=== PATIENT | male | born 1970 | race Caucasian/White ===

== ENCOUNTER 2023-06-09 17:35 | Emergency (ER) | payer SELFPAY ==
[~2023-06-09] VITALS: Ht 185.4 cm; Wt 82.8 kg
[2023-06-09 18:50] LABS: URINE BLOOD DIPSTICK Large (NEGATIVE); URINE GLUCOSE - DIPSTICK 100 mg/dL (NEGATIVE); URINE KETONE 40 mg/dL (NEGATIVE); URINE PH 6.5 (4.5-8.0); URINE PROTEIN - DIPSTICK >=300 mg/dL (NEG-TRACE)
[2023-06-09 18:51] LABS: URINE COLOR Red; URINE LEUK ESTERASE Large (NEGATIVE); URINE NITRITE - DIPSTICK Positive (Negative)
[2023-06-09 18:52] LABS: URINE RBC TNTC RBC/hpf (0-5)
[2023-06-09 19:59] LABS: BASO% 0.4 % (0-3); EOS% 1.6 % (0-8); HEMATOCRIT 46.6 % (39.0-50.0); HEMOGLOBIN 15.2 g/dl (14.0-18.0); IMMATURE GRANULOCYTES 0.1 % (0.0-5.0); LYMPH% 23.7 % (15-41); MEAN CORPUSCULAR HGB 29.3 pG CALC (26.0-32.0); MEAN CORPUSCULAR HGB CONC 32.6 g/dL CAL (32.0-36.0); MONO% 7.8 % (2-13); NEUT# 7.11 thou/uL (1.82-7.42); NEUT% 66.4 % (42-76); RED BLOOD COUNT 5.18 mill/uL (4.70-6.10); RED CELL DISTRI WIDTH 14.5 % (11.5-15.5)
[2023-06-09 20:11] LABS: ALBUMIN 4.4 g/dL (3.2-5.0); ALKALINE PHOSPHATASE 113 u/l (38-126); ANION GAP 15 (6-22 (CALC)); BILIRUBIN, TOTAL 0.5 mg/dL (0.2-1.3); BUN 15 mg/dL (9-20); BUN/CREATININE RATIO 18 (12-20 (CALC)); CARBON DIOXIDE 22 mmol/l (22-30); CHLORIDE 105 mmol/l (95-108); CREATININE 0.9 mg/dL (0.7-1.3); GFR FOR AFR.AMER. > 60 ML/MIN (>=60 (CALC)); GFR OTHER RACES > 60 ML/MIN (>=60 (CALC)); LIPASE 45 u/l (23-300); POTASSIUM 4.1 mmol/l (3.5-5.1); SGOT/AST 26 u/l (17-59); SODIUM 139 mmol/l (137-146)
[2023-06-09 20:12] LABS: PROTHROMBIN TIME 9.7 SECONDS (9.0-12.5)
[2023-06-09] MEDS ORDERED: OMNI-PAC300 MG PO (21:46)
[2023-06-09] MEDS ORDERED: ONDANSETRON HCL8 MG PO (21:46)
[2023-06-09] MEDS ORDERED: LEVAQUIN750 M1 PO (21:46)
[2023-06-09] MEDS ORDERED: LORTAB 1010 MG PO (21:46)
[2023-06-09 23:44] VITALS: BP 140/82
== END 2023-06-09 23:45 | disposition home or self-care (01) | DRG 699 ==
LOC: ED 17:35
PROVIDERS: Internal Medicine; Nurse Practitioner
DX: N32.9 Bladder disorder, unspecified (principal); N39.0 Urinary tract infection, site not specified; N20.0 Calculus of kidney; F17.210 Nicotine dependence, cigarettes, uncomplicated

== ENCOUNTER 2024-08-25 10:14 | Emergency (ER) | payer OTHER ==
[~2024-08-25] VITALS: Ht 185.4 cm; Wt 79.5 kg
[2024-08-25] VITALS (13 sets, daily range): BP systolic 119–160; BP diastolic 72–108
[~2024-08-25 10:14] MED LIST: LEVAQUIN750 M1 PO; LORTAB 1010 MG PO; OMNI-PAC300 MG PO; ONDANSETRON HCL8 MG PO
[2024-08-25] MEDS ORDERED: AZITHROMYCIN 250 MG/TAB PO ONE (10:35)
[2024-08-25] MEDS ORDERED: IPRATROPIUM-Albuterol 0.5MG-2.5MG/3 ML NEB ONE ×2 (10:35→10:40)
[2024-08-25] MEDS ORDERED: methylPREDNISolone SODIUM SUCC 125 MG/2 ML SDV IV ONE (10:35)
[2024-08-25] MEDS ORDERED: cefTRIAXone SODIUM 2 GM in SODIUM CHLORIDE 0.9% 100 ML IV ONE (10:35)
[2024-08-25 11:02] LABS: BASO% 0.8 % (0-3); EOS% 9.8 % (0-8); HEMATOCRIT 43.8 % (39.0-50.0); HEMOGLOBIN 13.8 g/dl (14.0-18.0); IMMATURE GRANULOCYTES 0.3 % (0.0-5.0); LYMPH% 27.7 % (15-41); MEAN CELL VOLUME 92.4 fL CALC (80.0-100.0); MEAN CORPUSCULAR HGB 29.1 pG CALC (26.0-32.0); MEAN CORPUSCULAR HGB CONC 31.5 g/dL CAL (32.0-36.0); MONO% 9.3 % (2-13); NEUT# 3.94 thou/uL (1.82-7.42); NEUT% 52.1 % (42-76); RED BLOOD COUNT 4.74 mill/uL (4.70-6.10); RED CELL DISTRI WIDTH 16.5 % (11.5-15.5)
[2024-08-25 11:17] LABS: ALBUMIN 4.5 g/dL (3.2-5.0); ALKALINE PHOSPHATASE 123 u/l (38-126); ANION GAP 12 (6-22 (CALC)); BILIRUBIN, TOTAL 0.8 mg/dL (0.2-1.3); BUN 6 mg/dL (9-20); BUN/CREATININE RATIO 7 (12-20 (CALC)); CARBON DIOXIDE 23 mmol/l (22-30); CHLORIDE 106 mmol/l (95-108); CREATININE 0.9 mg/dL (0.7-1.3); ESTIMATED GFR 102 ML/MIN (>=90 (CALC)); POTASSIUM 4.6 mmol/l (3.5-5.1); SGOT/AST 34 u/l (17-59); SODIUM 137 mmol/l (137-146); TOTAL PROTEIN 8.8 g/dL (6.3-8.2)
[2024-08-25] MEDS ORDERED: OXYCODONE HCL10 MG PO (11:33)
[2024-08-25] MEDS ORDERED: GABAPENTIN300 M2 PO (11:35)
[2024-08-25] MEDS ORDERED: ONDANSETRON HCL8 MG PO (11:36)
[2024-08-25] MEDS ORDERED: PROMETHAZINE12.5 M4 PO (11:37)
[2024-08-25] MEDS ORDERED: VENTOLIN HFA108 MCG IN (11:38)
[2024-08-25] MEDS ORDERED: IPRATROPIU0.5 MG/3 M IN (13:30)
[2024-08-25] MEDS ORDERED: TAM75CAP PO (13:30)
[2024-08-25] MEDS ORDERED: DOXYCYCLINE100 MG PO (13:30)
[2024-08-25] MEDS ORDERED: PREDNISONE50 MG PO (13:30)
== END 2024-08-25 13:49 | disposition home or self-care (01) ==
LOC: ED 10:14
PROVIDERS: Family Medicine
DX: J11.1 Influenza due to unidentified influenza virus with other respiratory manifestations (principal); J44.1 Chronic obstructive pulmonary disease with (acute) exacerbation; F17.200 Nicotine dependence, unspecified, uncomplicated; Z85.118 Personal history of other malignant neoplasm of bronchus and lung; Z85.51 Personal history of malignant neoplasm of bladder; Z20.822 Contact with and (suspected) exposure to COVID-19
CPT/HCPCS: J0696; Q9967

== ENCOUNTER 2024-09-12 07:30 | Inpatient (IN) | payer OTHER ==
[~2024-09-12] VITALS: Ht 185.4 cm; Wt 79.0 kg
[2024-09-12] VITALS (29 sets, daily range): BP systolic 121–161; BP diastolic 78–99
[~2024-09-12 07:30] MED LIST changes: +DOXYCYCLINE100 MG PO; +GABAPENTIN300 M2 PO; +IPRATROPIU0.5 MG/3 M IN; +OXYCODONE HCL10 MG PO; +PREDNISONE50 MG PO; +PROMETHAZINE12.5 M4 PO; +TAM75CAP PO; +VENTOLIN HFA108 MCG IN
[2024-09-12] MEDS ORDERED: cefTRIAXone SODIUM 2 GM in SODIUM CHLORIDE 0.9% 100 ML IV ONE (07:45)
[2024-09-12] MEDS ORDERED: DOXYCYCLINE HYCLATE 100 MG in SODIUM CHLORIDE 0.9% 100 ML IV ONE (07:50)
[2024-09-12] MEDS ORDERED: methylPREDNISolone SODIUM SUCC 125 MG/2 ML SDV IV ONE (07:50)
[2024-09-12] MEDS ORDERED: IPRATROPIUM-Albuterol 0.5MG-2.5MG/3 ML NEB ONE ×2 (07:50)
[2024-09-12] MEDS ORDERED: TYLENOL500 MG PO (07:54)
[2024-09-12 08:20] LABS: BASO% 0.3 % (0-3); EOS% 8.8 % (0-8); HEMATOCRIT 42.1 % (39.0-50.0); HEMOGLOBIN 13.3 g/dl (14.0-18.0); IMMATURE GRANULOCYTES 0.2 % (0.0-5.0); LYMPH% 21.3 % (15-41); MEAN CELL VOLUME 90.3 fL CALC (80.0-100.0); MEAN CORPUSCULAR HGB 28.5 pG CALC (26.0-32.0); MEAN CORPUSCULAR HGB CONC 31.6 g/dL CAL (32.0-36.0); MONO% 6.3 % (2-13); NEUT# 5.47 thou/uL (1.82-7.42); NEUT% 63.1 % (42-76); RED BLOOD COUNT 4.66 mill/uL (4.70-6.10); RED CELL DISTRI WIDTH 16.2 % (11.5-15.5)
[2024-09-12 08:28] LABS: ALBUMIN 4.1 g/dL (3.2-5.0); ALKALINE PHOSPHATASE 130 u/l (38-126); ANION GAP 12 (6-22 (CALC)); BILIRUBIN, TOTAL 0.5 mg/dL (0.2-1.3); BUN 10 mg/dL (9-20); BUN/CREATININE RATIO 11 (12-20 (CALC)); CARBON DIOXIDE 23 mmol/l (22-30); CHLORIDE 106 mmol/l (95-108); CREATININE 0.9 mg/dL (0.7-1.3); ESTIMATED GFR 102 ML/MIN (>=90 (CALC)); POTASSIUM 4.2 mmol/l (3.5-5.1); SGOT/AST 25 u/l (17-59); SODIUM 137 mmol/l (137-146); TOTAL PROTEIN 7.6 g/dL (6.3-8.2)
[2024-09-12] MEDS ORDERED: MAGNESIUM HYDROXIDE 30 ML UDC PO PRN (09:40)
[2024-09-12] MEDS ORDERED: ACETAMINOPHEN 325 MG/TAB PO PRN (09:40)
[2024-09-12] MEDS ORDERED: IPRATROPIUM-Albuterol 0.5MG-2.5MG/3 ML NEB PRN (09:45)
[2024-09-12] MEDS ORDERED: oxyCODONE HCL 5 MG/TAB PO PRN ×2 (10:05→19:38)
[2024-09-12] MEDS ORDERED: ONDANSETRON HCl 4 MG/2 ML SDV IV PRN (10:05)
[2024-09-12] MEDS ORDERED: PANTOPRAZOLE SODIUM Sesquihydr 40 MG/TAB PO SCH (10:30)
[2024-09-12] MEDS ORDERED: GABAPENTIN 300 MG/CAP PO SCH (10:30)
[2024-09-12] MEDS ORDERED: ALBUTEROL SULFATE 8 GM INH IN PRN (12:45)
[2024-09-12] MEDS ORDERED: methylPREDNISolone Sod Succ 40 MG/ML SDV IV SCH (14:00)
[2024-09-12] MEDS ORDERED: DOXYCYCLINE HYCLATE 100 MG in SODIUM CHLORIDE 0.9% 100 ML IV SCH (20:00)
[2024-09-12] MEDS ORDERED: ENOXAPARIN SODIUM 40 MG/0.4 ML SYR SC SCH (21:00)
[2024-09-12] MEDS ORDERED: Zaleplon 5 MG/CAP PO PRN (22:20)
[2024-09-13] VITALS (18 sets, daily range): BP systolic 114–156; BP diastolic 68–96
[2024-09-13 06:03] LABS: ALBUMIN 4.1 g/dL (3.2-5.0); BILIRUBIN, TOTAL 0.5 mg/dL (0.2-1.3); CREATININE 0.9 mg/dL (0.7-1.3); MAGNESIUM 2.1 mg/dL (1.6-2.3); POTASSIUM 4.4 mmol/l (3.5-5.1); TOTAL PROTEIN 7.5 g/dL (6.3-8.2)
[2024-09-13 06:06] LABS: BASO% 0.2 % (0-3); HEMATOCRIT 40.4 % (39.0-50.0); HEMOGLOBIN 13.1 g/dl (14.0-18.0); IMMATURE GRANULOCYTES 0.4 % (0.0-5.0); LYMPH% 9.6 % (15-41); MEAN CORPUSCULAR HGB 29.2 pG CALC (26.0-32.0); MEAN CORPUSCULAR HGB CONC 32.4 g/dL CAL (32.0-36.0); MONO% 5.4 % (2-13); NEUT# 9.93 thou/uL (1.82-7.42); NEUT% 84.4 % (42-76); RED BLOOD COUNT 4.49 mill/uL (4.70-6.10); RED CELL DISTRI WIDTH 15.9 % (11.5-15.5)
[2024-09-13] MEDS ORDERED: PNEUMOCOCCAL 20-VALENT CONJUGA 0.5 ML/DOSE INJ IM SCH (09:00)
[2024-09-13] MEDS ORDERED: CEFEPIME HYDROCHLORIDE 2 GM in SODIUM CHLORIDE 0.9% 100 ML IV SCH (14:00)
[2024-09-13] MEDS ORDERED: FAMOTIDINE 20 MG/TAB PO SCH (17:30)
[2024-09-13] MEDS ORDERED: CALCIUM CARBONATE 750 MG/TAB PO PRN (17:30)
[2024-09-14] VITALS (13 sets, daily range): BP systolic 123–153; BP diastolic 65–94
[2024-09-14 04:42] LABS: HEMATOCRIT 42.1 % (39.0-50.0); HEMOGLOBIN 13.4 g/dl (14.0-18.0); MEAN CELL VOLUME 91.3 fL CALC (80.0-100.0); MEAN CORPUSCULAR HGB 29.1 pG CALC (26.0-32.0); MEAN CORPUSCULAR HGB CONC 31.8 g/dL CAL (32.0-36.0); RED BLOOD COUNT 4.61 mill/uL (4.70-6.10); RED CELL DISTRI WIDTH 16.3 % (11.5-15.5)
[2024-09-14 04:57] LABS: ALBUMIN 4.1 g/dL (3.2-5.0); BILIRUBIN, TOTAL 0.5 mg/dL (0.2-1.3); CREATININE 0.9 mg/dL (0.7-1.3); MAGNESIUM 2.5 mg/dL (1.6-2.3); POTASSIUM 4.8 mmol/l (3.5-5.1); TOTAL PROTEIN 7.7 g/dL (6.3-8.2)
[2024-09-14] MEDS ORDERED: LEVOFLOXACIN750 MG PO (12:39)
[2024-09-14] MEDS ORDERED: PREDNISONE10 MG PO (12:39)
== END 2024-09-14 13:30 | disposition home or self-care (01) | DRG 190 ==
LOC: ED 07:30 → ED-I 09:25 → ED 09:44 → ICU 09:45
PROVIDERS: Family Medicine; Nurse Practitioner Family; ADMIT Internal Medicine; ATTEND Internal Medicine
PROC: 3E0234Z Introduction of Serum, Toxoid and Vaccine into Muscle, Percutaneous Approach (ICD-10-PCS; principal; 2024-09-13)
DX: J44.1 Chronic obstructive pulmonary disease with (acute) exacerbation (principal); J96.01 Acute respiratory failure with hypoxia; C34.90 Malignant neoplasm of unspecified part of unspecified bronchus or lung; K21.9 Gastro-esophageal reflux disease without esophagitis; G89.29 Other chronic pain; Z85.46 Personal history of malignant neoplasm of prostate; Z85.51 Personal history of malignant neoplasm of bladder; Z79.69 Long term (current) use of other immunomodulators and immunosuppressants; Z93.6 Other artificial openings of urinary tract status; Z90.6 Acquired absence of other parts of urinary tract; Z87.891 Personal history of nicotine dependence; Z20.822 Contact with and (suspected) exposure to COVID-19; Z23 Encounter for immunization
CPT/HCPCS: J0692; J0696; J1650; Q9967